=== PATIENT | female | born 1935 ===

== ENCOUNTER 2018-02-19 04:50 | Day surgery (SDC) | payer OTHER ==
[~2018-02-19 04:50] MED LIST: ACID CONTROLLER20 MG PO; FOLIC ACID1 MG PO; GLIPIZIDE ER10 MG PO; HIDRALAZINE; HUMULIN N100 UNIT/2; IRBESARTAN300 MG PO; LASIX20 MG PO; METOPROLOL SUCC50 MG PO; SIMVASTATIN20 MG PO
[2018-02-19] MEDS ORDERED: MACROBID 100 M100 MG PO (12:04)
[2018-02-19] MEDS ORDERED: ULTRACET PO (12:04)
== END 2018-02-19 14:50 | disposition home or self-care (01) ==
LOC: CIR.AMB 04:50
DX: N81.3 Complete uterovaginal prolapse (principal)